=== PATIENT | male | born 1965 | race Caucasian/White ===

== ENCOUNTER 2016-12-20 02:38 | Emergency (ER) | payer SELFPAY ==
[2016-12-20 02:46] VITALS: RESP 16
[2016-12-20] MEDS ORDERED: AMOXICILLIN/CLAVULANATE POT 875/125 MG TAB PO ONE (03:27)
--- NOTE | 2016-12-20 03:29 | EDPHY ---
H & P Stated Complaint: perineal swelling Time Seen by Provider: 12/20/16 02:58 HPI/ROS: HPI The patient presents with swelling and pain in his perineal region which has been present for the last several days ago getting progressively worse. He could not sleep tonight because of the pain so he comes into the emergency room. The pain is throbbing in nature, worse when he walks. He says he usually has chaffing in the perineal region. He has not had any fevers or chills, nausea or vomiting and feels well otherwise he has no prior history of similar. He has no difficulty urinating or having a bowel movement. REVIEW OF SYSTEMS Constitutional: No fever, no chills. Eyes: No discharge. ENT: No sore throat. Cardiovascular: No chest pain, no palpitations. Respiratory: No cough, no shortness of breath. Gastrointestinal: No abdominal pain, no vomiting. Genitourinary: No hematuria. Musculoskeletal: No back pain. Skin: No rashes. Neurological: No headache. PMHx: Has not been to the doctor in 6 years Soc Hx: Uses tobacco, lives in [place] PHYSICAL General Appearance: Alert, no distress Eyes: Pupils equal and round no pallor or injection ENT, Mouth: Mucous membranes moist Respiratory: There are no retractions, lungs are clear to auscultation Cardiovascular: Regular rate and rhythm Gastrointestinal: Abdomen is soft and non-tender, no masses, bowel sounds normal : Perineum with 4 cm area of fluctuance, erythema, tenderness and warmth Neurological: A&O, moves all extremities Skin: Warm and dry, no rashes Musculoskeletal: Neck is supple non tender Extremities: symmetrical, full range of motion Psychiatric: Patient is oriented X 3, there is no agitation Source: Patient Exam Limitations: No limitations - Personal History Current Tetanus/Diphtheria Vaccine: Yes Current Tetanus Diphtheria and Acellular Pertussis (TDAP): Yes Tetanus Vaccine Date: ~2013 - Medical/Surgical History Hx Asthma: No Hx Chronic Respiratory Disease: No Hx Diabetes: No Hx Cardiac Disease: No Hx Renal Disease: No Hx Cirrhosis: No Hx Alcoholism: No Hx HIV/AIDS: No Hx Splenectomy or Spleen Trauma: No Other PMH: denies - Social History Smoking Status: Heavy smoker Constitutional: Initial Vital Signs Temperature (C) 36.8 C 12/20/16 02:43 Heart Rate 77 12/20/16 02:43 Respiratory Rate 16 12/20/16 02:43 Blood Pressure 148/68 H 12/20/16 02:43 O2 Sat (%) 94 12/20/16 02:43 O2 Delivery Mode Room Air Allergies/Adverse Reactions: No Known Allergies Allergy (Unverified 12/20/16 02:46) Home Medications: Medication Instructions Recorded Amoxicillin/Clavulanate Pot 875 mg PO BID #14 tab 12/20/16 [Augmentin 875 MG TAB (*)] Medical Decision Making Procedures: Bedside skin and soft tissue of the perineum Ultrasound- performed and interpreted by me. Indication: Perineal swelling Findings: Superficial, well-circumscribed fluid collection just below skin surface and 2 cm deep, with no areas of vascularity Impression: Likely perineal abscess Procedure: Abscess drainage. The patient's abscess was located on the perineum. I obtained verbal consent from the patient to drain the abscess who was informed about the possibility of bleeding and pain. The abscess was incised with 11 blade scalpel and a moderate amount of purulent drainage was expressed. I irrigated the wound and placed some packing. The patient tolerated the procedure well. The procedure was performed by myself. Differential Diagnosis: This is a 51-year-old healthy man who presents with several days of perineal swelling that is getting progressively worse. On exam, he has an area of erythema, warmth, fluctuance, tenderness to palpation in his mid perineal region. Differential diagnosis includes abscess, mass, cellulitis. Ultrasound at the bedside was performed which demonstrated a superficial fluid collection. Thus, I and D was performed successfully is and packing was placed. I feel he likely has chaffing in this area which caused skin breakdown and led to abscess. Given the location, I will place him on Augmentin. I have invited him back in 1-2 days for a wound check. He is not exhibiting any systemic signs of illness. Because of a strong family history of diabetes and this infection, glucose was checked and was normal. As I have encouraged him to follow up with the [facility] for primary care. - Data Points Medications Given: Discontinued Medications Amoxicillin/Clavulanate Potassium (Augmentin 875mg) 875 mg PO EDNOW ONE PRN Reason: Protocol Stop: 12/20/16 03:28 Last Admin: 12/20/16 03:44 Dose: 875 mg Ibuprofen (Motrin) 600 mg PO EDNOW ONE Stop: 12/20/16 04:12 Last Admin: 12/20/16 04:12 Dose: 600 mg Departure - Departure Disposition: Home, Routine, Self-Care Clinical Impression: Perineal abscess Condition: Good Instructions: Abscess (ED), Cold Compress or Soak (ED) Additional Instructions: Please return to the emergency room if your worse in any way. Referrals: [facility] [Outside] - As per Instructions [facility],. [Clinic] - As per Instructions Alberto Vela MD [Medical Doctor] - As per Instructions Prescriptions: Amoxicillin/Clavulanate Pot [Augmentin 875 MG TAB (*)] 875 mg PO BID #14 tab
[2016-12-20] MEDS ORDERED: IBUPROFEN 600 MG TAB PO ONE ×2 (04:08→04:11)
[2016-12-20 04:11] VITALS: BP 137/66; PULSE 55; TEMP 97.9; O2SAT 96
== END 2016-12-20 04:14 | disposition home or self-care (01) ==
PROC: 0H99XZZ Drainage of Perineum Skin, External Approach (ICD-10-PCS; principal; 2016-12-20)
DX: L02.215 Cutaneous abscess of perineum (principal); F17.200 Nicotine dependence, unspecified, uncomplicated
CPT/HCPCS: 82947-QW